=== PATIENT | male | born 1940 | race Caucasian/White ===

== ENCOUNTER 2016-04-11 13:45 | Emergency (ER) | payer BC, OTHER, MEDICARE ==
[2016-04-11] MEDS ORDERED: Sodium Chloride 0.9% 1,000 ML PRIMARY IV ONE (13:55)
[2016-04-11] MEDS ORDERED: ONDANSETRON 4 MG/2 ML VIAL IVP ONE (13:55)
[2016-04-11] MEDS ORDERED: IPRATROPIUM/ALBUTEROL SULFATE 3 ML NEB NEB ONE (13:55)
--- NOTE | 2016-04-11 14:02 | PDOC ---
Sore Throat/Dental Pain HPI - General Chief Complaint: Nasal/Mouth Problem /Injury Stated Complaint: swelling left jaw/side of neck Date Seen by Provider: 04/11/16 Time Seen by Provider: 13:57 Source: POSITIVE: Patient, Spouse, RN/MD Exam Limitations: POSITIVE: No limitations Nurse's Notes Reviewed & Considered: Yes - History of Present Illness Initial Comments: The patient comes in today with a chief complaint of mass in his left neck and left jaw. Patient awoke this morning with swelling of his face and jaw. This afternoon he had an episode of coughing and significant sudden dramatic increase in swelling of his jaw and neck. His primary care physician, Dr. Rutherford , has relaid to me that the patient had recent dental infection a week ago. At present patient denies any headache, shortness of breath, chest pain, nausea vomiting or diarrhea, fever chills or sweats, hematuria or dysuria. Patient has had an episode of coughing. Location: Other (Left lower jaw and left neck.) Timing: REPORTS: Abrupt, Upon Awakening, Changing Over Time, Getting Worse Duration: <24 hours Severity: Moderate Quality: REPORTS: "Pain" (Minimal pain that he rates as a 2 over 10.) Context: REPORTS: Other (Recent dental infection.) Modifying Factors: improves with: Coughing (Coughing seems to have made the swelling increased.), Cold (Ice has helped.) Associated Symptoms: REPORTS: Swollen Jaw, Swollen Face, Swollen Glands Similar Symptoms Previously: No Recently seen/treated/hospitalized: No Any Prior Injuries Related to Current Complaint?: No - Patient Home Medications Home Medications: Home Medications Aspirin 1 tab ORAL QD tab 01/29/11 Tadalafil [Cialis] 1 tab PO QD PRN #10 tab 09/22/13 Atorvastatin Calcium [Lipitor] 1 tab ORAL QD #90 tab 11/24/15 Enalapril Maleate 1 tab ORAL BID #180 tab 11/24/15 Hydrochlorothiazide 1 tab ORAL QD #90 tab 11/24/15 Influenza 16-17 Vaccine(4yrs+) [Fluvirin 16-17 Prefilled Vaccine (4yrs+)] 0.5 ml IM ONCE #1 ml 11/24/15 Amoxicillin/Potassium Clav [Amox-Clav 875-125 Mg Tablet] 1 tab PO Q12H #20 tab 04/11/16 - Patient Allergies Allergies/Adverse Reactions: Allergies Allergy/AdvReac Type Severity Reaction Status Date / Time No Known Allergies Allergy Verified 04/11/16 13:55 Past Medical History - heen HEENT History: Denies History Cardiovascular History: Hypertension, Hyperlipidemia Respiratory History: Sleep Apnea Additional Respiratory History: OBSTRUCTIVE SLEEP APNEA Gastrointestinal History: GERD, Diverticulitis Genitourinary History: Denies History Endocrine History: Denies History Musculoskeletal History: Other (please comment) Additional Musculoskeletal History: PROLAPSED CERVICAL INTERVERTEBRAL DISC Neurological History: Denies History Blood Disorders: Denies History Psychiatric History: Denies History History of Sexually Transmitted Diseases: No Cancer History: Denies History History of MDRO: No Alcohol Use: Other Substance Use Type: None Previous Surgical History: Yes Type / Date of Surgery: COLONSCOPY 2002/ TONSILLECTOMY /CTR 2012 Anesthesia Reactions: No Malignant Hyperthermia: No Significant Family History: Cancer Additional Family History: FATHER OF LIVER CA @ AGE 60 ROS - Limitations ROS Limitations: No Limitations Constitution: REPORTS: Denies Symptoms Cardiovascular: REPORTS: Denies Cardiac Symptoms Respiratory: REPORTS: Cough Non Productive Neurological: REPORTS: Denies Neuro Symptoms Gastrointestinal: REPORTS: Denies GI Symptoms Endocrine: REPORTS: Denies Symptoms Musculoskeletal: REPORTS: Neck Pain Genitourinary: REPORTS: Denies Symptoms Eyes: REPORTS: Denies Symptoms ENT: REPORTS: Trouble Swallowing, Other (Swelling of left lower jaw and neck.) Skin: REPORTS: Denies Skin Symptoms Lympathic: REPORTS: Swollen Glands Immunologic: POSITIVE: Denies Symptoms Psychiatric: POSITIVE: Denies Psych Symptoms Sore Throat/Dental Pain Exam - General Appearance General Appearance: REPORTS: Alert, Cooperative, No Acute Distress, No Evidence of Trauma - HEENT Head / Face: POSITIVE: Atraumatic, Normal Inspection, Facial Swelling (Left lower jaw with swelling radiating into his left neck) Eyes: POSITIVE: Inspection Normal, PERRL, EOM's Intact, Eyelids Uninjured, Conjunctivae Uninjured, No Nystagmus, Sclera Normal Ears: POSITIVE: Ears Normal Inspection, Auricle Normal Nose: POSITIVE: Inspection Normal, No Apparent Trauma, Nares Normal, No CSF Leak Oropharynx: POSITIVE: Airway Intact, Voice Normal, Moist Mucous Membranes, No Oral Injury, Lips Normal, Gums Normal, No Drooling, No Thrush, Tenderness (Left lateral jaw with extension into his left neck.), Swelling Neck: POSITIVE: Lymphadenopathy Dental: POSITIVE: No Dental Injury, Dental Caries - Respiratory Respiratory: REPORTS: No Respiratory Distress, No Pleuritic Chest Pain, Speaks Full Sentences, No Pain on Inspiration, Wheezes - Cardiovascular Cardiovascular: REPORTS: Regular Rate and Rhythm, Heart Sounds Normal - Abdomen Abdomen: Soft: (All Quadrants), Normal Bowel Sounds: (All Quadrants), Denies Tenderness: (All Quadrants) - Extremities Extremity: Non-Tender: (All Extremities), Normal ROM: (All Extremities), Normal Inspection: (All Extremities) - Skin Skin: REPORTS: Intact, Normal For Race, Warm, Dry, No Rash - Neurological / Psychological Neurological: POSITIVE: Affect Apporpriate, Oriented X3 Sore Throat/Dental Progress - Results Reviewed by me Xrays/CTs/US Reviewed by me: Yes Discussed with Radiologist: Yes Lab Results Reviewed: Yes Lab Results:: Laboratory Results 04/11/16 Range/Units 14:04 WBC 8.23 (4.8-10.8) 10^3/uL RBC 5.76 (4.70-6.10) 10^6/uL Hgb 15.6 (14.0-18.0) g/dL Hct 45.2 (42.0-52.0) % MCV 78.5 L (80-90) FL MCH 27.1 (27-31) PG MCHC 34.5 (33-37) g/dL RDW Std Deviation 41.8 (39-50) fL RDW Coeff of Sonya 14.6 H (11.5-14.5) % Plt Count 187 (140-350) 10*3/uL MPV 10.8 (7.4-12.2) FL Immature Gran % (Auto) 0.5 (0-5) % Neut % (Auto) 79.2 (50-80) % Lymph % (Auto) 10.1 (10-50) % [place] % (Auto) 8.0 (5-15) % Eos % (Auto) 1.8 (0-8) % Baso % (Auto) 0.4 (0-1) % Immature Gran # (Auto) 0.04 10*3/UL Neut # (Auto) 6.52 10*3/UL Lymph # (Auto) 0.83 10*3/uL [place] # (Auto) 0.66 (0.3-0.8) 10*3/UL Eos # (Auto) 0.15 10*3/UL Baso # (Auto) 0.03 10*3/UL WBC Morphology Comment Normal morphology (NORM) Plt Morphology Comment Normal morphology (NORM) RBC Morph Comment Normal morphology (NORM) Sodium 128 L (135-145) meq/L Potassium 4.0 (3.8-5.2) meq/L Chloride 91 L (98-112) meq/L Carbon Dioxide 26 (23-33) meq/L Anion Gap 11 (5-20) BUN 13 (7-22) mg/dL Creatinine 0.9 (0.70-1.50) mg/dL Estimated GFR (>60 ml/min/1.73m(2)) BUN/Creatinine Ratio 14.44 (6-20) Glucose 129 H (78-110) mg/dL Calculated Osmolality 267.0 (267-292) mOsm/kg Calcium 9.1 (8.7-10.7) mg/dL Total Bilirubin 1.1 (0.3-1.2) mg/dL AST 30 (21-57) IU/L ALT 48 (21-72) IU/L Alkaline Phosphatase 70 (38-126) IU/L Total Protein 6.8 (6.1-8.0) g/dL Albumin 4.2 (3.5-4.8) g/dL Globulin 2.6 (2.50-4.10) g/dL Albumin/Globulin Ratio 1.60 (1.3-2.0) mg/g - Patient's Progress Pain Medication Addressed: POSITIVE: Not Applicable Re-Examine Time:: 16:20 Status: POSITIVE: Improved MDM / ED Course: Patient comes in and is evaluated, an IV was started, blood drawn and sent to the lab for studies, and CT scan of his soft tissues was obtained. Laboratory findings: Hyponatremia with a sodium of 129. CT scan shows marked enlargement with inflammatory and infiltrative changes involving the left submandibular gland and the surrounding soft tissue. No masses noted no ductal dilatation. No calculus is seen in the distribution of the Kian's duct. Assessment: Infected submandibular gland. Plan: IV Rocephin here in the emergency department, Keflex prescription, IV dexamethasone in the ED. Follow up with Dr. Rojelio Arnett in [place] tomorrow A.M. prescription for [place]. - Consult Consult (If Yes, Name of Consulting MD & Time Called): Yes (Dr. Rojelio Urbina) Consulting MD will see pt:: POSITIVE: In Office Counseled: POSITIVE: Patient, Family, RE: Lab Results, RE: Radiology Results, RE : DX, RE: Need for F/U Patient Care Time - Estimated PCT Patient Care Time (In Minutes): 30 Vital Signs - Recent Vital Signs Vital Signs: Vital Signs (Last 8 hours) Temp Pulse Resp BP Pulse Ox 04/11/16 13:59 96.7 F L 107 H 20 164/108 93 - VS Reviewed Vital Signs Reviewed: Yes Discharge Clinical Impression: Salivary gland disturbance Discharge Disposition: Discharged to Home Condition: Stable Patient Instructions Given at Discharge: Sialoadenitis (ED)
[2016-04-11 14:10] VITALS: RESP 20; TEMP 96.7
[2016-04-11 14:23] LABS: BASOPHILS # (AUTO) 0.03 10*3/UL; BASOPHILS % (AUTO) 0.4 % (0-1); EOSINOPHILS % (AUTO) 1.8 % (0-8); HEMATOCRIT 45.2 % (42.0-52.0); HEMOGLOBIN 15.6 g/dL (14.0-18.0); IMM GRAN % (AUTO) 0.5 % (0-5); IMM GRAN# (AUTO) 0.04 10*3/UL; LYMPHOCYTES # (AUTO) 0.83 10*3/uL; LYMPHOCYTES % (AUTO) 10.1 % (10-50); MEAN CORPUSCULAR HEMOGLOBIN 27.1 PG (27-31); MEAN CORPUSCULAR HGB CONC 34.5 g/dL (33-37); MEAN PLATELET VOLUME 10.8 FL (7.4-12.2); MONOCYTES # (AUTO) 0.66 10*3/UL (0.3-0.8); NEUTROPHILS # (AUTO) 6.52 10*3/UL; NEUTROPHILS % (AUTO) 79.2 % (50-80); RDW COEFFICIENT OF VARIATION 14.6 % (11.5-14.5); RED BLOOD COUNT 5.76 10^6/uL (4.70-6.10); WHITE BLOOD COUNT 8.23 10^3/uL (4.8-10.8)
[2016-04-11 14:25] LABS: PLATELET MORPHOLOGY COMMENT NORMAL MORPHOLOGY (NORM)
[2016-04-11 14:29] LABS: BILIRUBIN,TOTAL 1.1 mg/dL (0.3-1.2); BUN/CREATININE RATIO 14.44 (6-20); CALCIUM 9.1 mg/dL (8.7-10.7); CREATININE 0.9 mg/dL (0.70-1.50); TOTAL PROTEIN 6.8 g/dL (6.1-8.0)
--- NOTE | 2016-04-11 16:14 | DI ---
CT SCAN OF THE NECK WITH IV CONTRAST, 04/11/2016 1:55 PM : Clinical History: Left neck and jaw mass. Previous Exam: None at this facility. Scans are obtained from below the sternal notch to the petrous pyramids with IV contrast. Sagittal an d coronal images are generated. 70 ml of Isovue 300 was injected IV. The cervical vertebral bodies are of normal height and size. Severe cervical disc space narrowing is present from C4-5 through C7-T1. The carotid and vertebral arteries are normal. There are no soft tis celeste masses on either side but there is marked enlargement of the left submandibular gland with hyperv ascularity. There is inflammatory/infiltrative change in the surrounding soft tissues. There is no ma ss within the submandibular gland and there is no dilatation of the duct or evidence of a calculus in Eldridge's duct. No lymphadenopathy is identified. The left submandibular gland is normal. Both parot id glands are also normal. There is a 6 mm nonfunctioning nodule in the upper pole of the right thyro id lobe, and a 5 mm nonfunctioning nodule in the lower pole of the left thyroid lobe. READIN. There is marked enlargement with inflammatory/infiltrative change involving the left submandibula r gland in the surrounding soft tissues. No mass is identified within the submandibular gland and no ductal dilatation is noted. No calculus is seen in the distribution of Eldridge's duct. The right subm andibular gland is normal. There is no adenopathy or evidence of an abscess. 2. Both parotid glands are normal. There are non-functioning nodules in both lobes of the thyroid.
[2016-04-11] MEDS ORDERED: cefTRIAXone Inj 2 GM in Sodium Chloride 0.9% 100 ML IV ONE (16:16)
[2016-04-11] MEDS ORDERED: DEXAMETHASONE PF 10 MG/1 ML VIAL IVP ONE (16:16)
== END 2016-04-11 17:10 | disposition home or self-care (01) ==
LOC: ER 13:45
DX: K11.8 Other diseases of salivary glands (principal); R22.0 Localized swelling, mass and lump, head
CPT/HCPCS: 70491; 80053; 85025; 94640; 96365; 96375; 99283 ×2; J7620; J0696; J1100; J7030; J7050

== ENCOUNTER → 2016-07-10 | Outpatient (CLI) | payer BC, OTHER, MEDICARE | LOC: LAB 08:24 | PROVIDERS: ATTEND Physician Assistant | DX: R97.20 Elevated prostate specific antigen [PSA] (principal) | CPT/HCPCS: 36415; 84153 ==